=== PATIENT | male | born 1935 | race Caucasian/White ===

== ENCOUNTER 2017-05-31 10:31 | Inpatient (IN) | payer MEDICARE, OTHER ==
[~2017-05-31] VITALS: Ht 172.7 cm; Wt 89.6 kg
[~2017-05-31 10:31] MED LIST: ASPI325T PO; GLUCTAB OR; GLYB1TAB51 PO; MELO7.5T PO; SIMV20TA OR
[2017-05-31 11:05] VITALS: BP 144/84; PULSE 78; RESP 18; TEMP 98; O2SAT 92
[2017-05-31] MEDS ORDERED: RAPA8CAP PO (11:16)
[2017-05-31] MEDS ORDERED: METF1000 PO (11:16)
[2017-05-31] MEDS ORDERED: LOSA25TA PO (11:16)
[2017-05-31] MEDS ORDERED: PANT40TA3 PO (11:16)
[2017-05-31] MEDS ORDERED: MULTTAB67 PO (11:16)
[2017-05-31] MEDS ORDERED: APIX5TAB PO (11:16)
[2017-05-31] MEDS ORDERED: POTA1080 PO (11:16)
[2017-05-31] MEDS ORDERED: NOVONP2 SQ (11:16)
[2017-05-31] MEDS ORDERED: SIMV20TA PO (11:16)
[2017-05-31] MEDS ORDERED: OMEGCAP PO (11:16)
[2017-05-31] MEDS ORDERED: VITA2000 PO (11:16)
[2017-05-31] MEDS ORDERED: VICT18IN SQ (11:16)
[2017-05-31] MEDS ORDERED: GLIM2TAB PO (11:16)
[2017-05-31 11:19] LABS: BASOPHIL % 0.3 % (0.0-2.0); EOSINOPHIL # 0.2 TH/MM3 (0-0.4); EOSINOPHIL % 1.9 % (0.0-4.0); HEMATOCRIT 38.8 % (39.0-51.0); HEMO FLAGS DIFF FINAL; LYMPH % 15.8 % (9.0-44.0); LYMPHOCYTE # 1.7 TH/MM3 (1.0-4.8); MEAN CELL VOLUME 93.9 FL (80.0-100.0); MEAN CORPUSCULAR HEMOGLOBIN 32.2 PG (27.0-34.0); MEAN CORPUSCULAR HGB CONC 34.3 % (32.0-36.0); MONO % 5.8 % (0.0-8.0); NEUT % 76.2 % (16.0-70.0); PLATELET COUNT 315 TH/MM3 (150-450); RED BLOOD COUNT 4.13 MIL/MM3 (4.50-5.90); RED CELL DISTRIBUTION WIDTH 14.4 % (11.6-17.2); WHITE BLOOD COUNT 10.5 TH/MM3 (4.0-11.0)
[2017-05-31 11:32] LABS: PROTHROMBIN TIME - PATIENT 10.7 SEC (9.8-11.6)
[2017-05-31 11:35] LABS: BICARBONATE 27.1 MEQ/L (21.0-32.0)
[2017-05-31] MEDS ORDERED: CLOPIDOGREL 300 MG TAB PO ONE (12:00)
[2017-05-31] MEDS: SODIUM CHLOR 0.9% 1000 ML INJ 1,000 ML IV SCH ×2 (12:00→17:23)
[2017-05-31] MEDS ORDERED: fentaNYL CITRATE 250 MCG/5 ML AMP ONE (13:02)
[2017-05-31] MEDS ORDERED: MIDAZOLAM HCL 2 MG/2 ML VIAL ONE (13:02)
[2017-05-31] MEDS ORDERED: VERAPAMIL HCL 5 MG/2 ML VIAL ONE (13:08)
[2017-05-31] MEDS ORDERED: HEPARIN SODIUM - IV 10,000 UNITS/10 ML VIAL ONE (14:25)
[2017-05-31] MEDS ORDERED: ceFAZolin 2 GM PREMIX 50 ML ONE (14:25)
[2017-05-31] MEDS ORDERED: ACETAMINOPHEN 325 MG TAB PO PRN (14:30)
[2017-05-31] MEDS ORDERED: oxyCODONE/ACETAMINOPHEN 5 MG/325 MG TAB PO PRN (14:30)
--- NOTE | 2017-05-31 14:31 | PD.RAD ---
Post Procedure Progress Note Pre Procedure Diagnosis: (1) Recurrent stenosis of right carotid artery Post Procedure Diagnosis: (1) Recurrent stenosis of right carotid artery Procedure Date: May 31, 2017 Supervising Radiologist: Miguelangel Poole Estimated blood loss: 5cc Anesthesia: Local, Conscious Sedation Plan of Activity Patient to Unit: ROPU Patient Condition: Good Additional Comments: Post right carotid stent placement for recurrent carotid stenosis post CEA. Stent in excellent position and fully expanded. Excellent intracranial flow Pt. neurologically intact. Full dictated report to follow See PACS Report for procedural detail/treatment Miguelangel Poole MD May 31, 2017 14:31
[2017-05-31] MEDS ORDERED: IODIXANOL 320 MG/ML 50 ML VIAL (for RAD SPEC) I-ARTERIAL ONE (14:41)
[2017-05-31] MEDS ORDERED: SODIUM CHLORIDE 0.9% FLUSH 10 ML FLUSH IV FLUSH PRN (14:45)
[2017-05-31 15:00] VITALS: BP 132/86; PULSE 66; RESP 16; TEMP 98; O2SAT 94
--- NOTE | 2017-05-31 15:28 | RADRPT ---
EXAM DATE/TIME: 05/31/2017 13:01 [place] COMPARISON: US GUIDED VASCULAR ACCESS, RIGHT, May 31, 2017, 0:00. INDICATIONS : Patient is in need of a cerebral angiogram and right carotid stent due to carotid stenosis. MEDICAL HISTORY : History of AFIB, CVA, PVD, renal stones, asthma, HTN, DM. SURGICAL HISTORY : History of tonsillectomy, bilateral carotid endoarterectomy. ENCOUNTER: Initial ACUITY: 1 week PAIN SCORE: 0/10 FLUORO TIME: 17.2 minutes IMAGE SERIES: 13 ACCESS SITE: Right Femoral artery SEDATION TIME: 60 minutes CONTRAST: 100 cc Visipaque (iodixanol) MEDICATION(S): 1.) 3.5 mg midazolam (Versed) IV 2.) 175 mcg fentanyl (Sublimaze) IV 3.) 6000 units Heparin IV 4.) 2 g cefazolin (Ancef) IV Vancomycin within 2 hrs of procedure, Ancef (or alternative) within 1 hr of procedure. DEVICE(S): 1.) Right internal carotid artery 5.0mm x 20mm x 135cm DRY CLEANING ATTENDANT balloon BS Thaddeus Monorail 2.) Right internal carotid artery 10-7 x 30 stent (self expanding) 3.) Right common femoral artery 6Fr Angio-Seal 4.) PROCEDURE : 1. Ultrasound guided puncture of the right common femoral common femoral artery. 2. Angiography of the right common femoral artery prior to closure device. 3. Conscious sedation with continuous EKG and oximetry monitoring. 4. Percutaneous closure of the femoral artery. 5. Angiography of the right internal carotid 6. intracranial circulation on the right. 7. Angioplasty of the right internal carotid. 8. Stenting of the right internal carotid circulation. The patient is a 81-year-old who underwent right carotid endarterectomy approximately 10 years previo us. The patient underwent CT angiography demonstrating focal stenosis in the proximal right internal carotid. The risks, benefits and alternatives to the procedure were explained and verbal and written consent was obtained. The site was prepped in sterile fashion. Full sterile technique was used, inc luding cap, mask, sterile gloves and gown and a large sterile sheet. Hand hygiene and 2% chlorhexidi ne and/or betadine/alcohol prep was utilized per protocol for cutaneous antisepsis. The skin and sub cutaneous tissues were infiltrated with local anesthetic solution. The patient was given a loading dose of 300 mg of Plavix 2 hours prior to the procedure. With ultrasound and fluoroscopic guidance the right common femoral artery was punctured and a vascula r sheath was placed. Angiography of the common femoral artery was performed for evaluation prior to p ercutaneous closure device placement. A 0.035 angle glide wire and GENA 2 catheter were advanced into the aortic arch. The innominate artery origin was easily selected. A 0.035 angled Glidewire was advanced into the right common carotid. The GENA 2 catheter was advanced up to the bifurcation. Selective carotid angiography demonstrated a critic al weblike stenosis in the origin of the right internal carotid. This was felt to be greater than 80- 90%. The patient was heparinized with a total of 6000 units of heparin. ACT was documented approximately 2 40-250. The external carotid circulation was easily selected. The GENA 2 catheter was advanced into the externa l carotid. The Glidewire was exchanged for a Magic torque wire. A 90 cm 6 [place] Raabe sheath was adv anced from the right groin up to the distal common carotid. The Magic torque wire was removed. The internal carotid circulation was cannulated with a 0.018 steal core wire. A 7 mm spider asked filter basket was advanced over the steal core wire and positioned wi thin the right internal carotid circulation at the level of the skull base. A 5 mm x 2 cm balloon was advanced over the steal core wire. Angioplasty of the carotid stenosis was performed. Followup angiography demonstrated significant resolution of the area of stenosis. This was followed by a 8/10 x 3 cm self-expanding stent. Followup angiography demonstrated the stent to be in excellent position. The internal carotid was wid tracy patent. There is brisk flow within the intrarenal circulation as well. The puncture site was closed with a Perclose suture mediated closure device. The patient tolerated t he procedure well and there were no complications. Conscious sedation was performed with the prescribed dosages and duration as above in the presence of an independent trained radiology nurse to assist in the monitoring of the patient. EKG and oximetry remained stable throughout the procedure. CONCLUSION: 1. Uncomplicated carotid artery stent placement as above. The stent is in excellent position with joel sk flow through the internal carotid circulation. 2. Ultrasound examination at 6, 12, 18 and 24 months following procedure should be performed to evalu ate stent patency. Miguelangel Poole MD on May 31, 2017 at 15:15 Board Certified Radiologist. This report was verified electronically.
--- NOTE | 2017-05-31 15:53 | HHI.HP ---
[facility] Primary [facility] Physician Willis Márquez, Admission Diagnosis right recurrent carotid artery stenosis Diagnoses: (1) Recurrent stenosis of right carotid artery Diagnosis: Principal Chief Complaint: carotid blockage Travel History International Travel<30 Days: No Contact w/Intl Traveler <30 Da: No Traveled to Known Affected Are: No History of Present Illness 81-year-old white male being admitted for recurrent right carotid artery stenosis with a history of stroke in left eye w/ permanently impaired vision. Patient underwent right carotid artery stent placement today without complication, good blood flow evident. Denies having any strokelike symptoms in the past month including but not limited to facial droop, slurred speech, aspirating, choking, new vision impairment, focal limb numbness or weakness. 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 Reports undergoing what sounds bilateral carotid artery bypass surgery years ago. Review of Systems Except as stated in HPI: all other systems reviewed are Neg Past Family Social History Past Medical History diabetes, CVA, afib, nephrlithiasis Past Surgical History bilateral carotid endarterectomy, adenotonsillectomy Reported Medications Reported Meds & Active Scripts Active Reported Potassium Citrate ER 1,080 Mg Tab 1 Tab PO DAILY Novolin N Inj (Insulin Human NPH) 1,000 Unit/10 Ml Vial 10 Units SQ DAILY Simvastatin 20 Mg Tab 20 Mg PO DAILY Rapaflo (Silodosin) 8 Mg Cap 8 Mg PO DAILY Victoza Inj (Liraglutide Inj) 18 Mg/3 Ml Pen 0.6 Mg SQ ONCE Eliquis (Apixaban) 5 Mg Tab 5 Mg PO BID Pantoprazole (Pantoprazole Sodium) 40 Mg Tab 40 Mg PO DAILY Multiple Vitamin 1 Tab 1 Tab PO DAILY [place]-3 Fish Oil/Vitamin (Fish Oil-Cholecalciferol) 1,000-1,000 Mg Cap 1 Cap PO DAILY Vitamin D3 (Cholecalciferol) 2,000 Unit Cap 2,000 Units PO DAILY Glimepiride 2 Mg Tab 2 Mg PO BIDAC Losartan (Losartan Potassium) 25 Mg Tab 25 Mg PO DAILY Metformin (Metformin HCl) 1,000 Mg Tab 1,000 Mg PO BIDPC With meals Allergies: Coded Allergies: No Known Allergies (Unverified , 05/31/17) Active Ordered Medications Reported Meds & Active Scripts Active Reported Potassium Citrate ER 1,080 Mg Tab 1 Tab PO DAILY Novolin N Inj (Insulin Human NPH) 1,000 Unit/10 Ml Vial 10 Units SQ DAILY Simvastatin 20 Mg Tab 20 Mg PO DAILY Rapaflo (Silodosin) 8 Mg Cap 8 Mg PO DAILY Victoza Inj (Liraglutide Inj) 18 Mg/3 Ml Pen 0.6 Mg SQ ONCE Eliquis (Apixaban) 5 Mg Tab 5 Mg PO BID Pantoprazole (Pantoprazole Sodium) 40 Mg Tab 40 Mg PO DAILY Multiple Vitamin 1 Tab 1 Tab PO DAILY [place]-3 Fish Oil/Vitamin (Fish Oil-Cholecalciferol) 1,000-1,000 Mg Cap 1 Cap PO DAILY Vitamin D3 (Cholecalciferol) 2,000 Unit Cap 2,000 Units PO DAILY Glimepiride 2 Mg Tab 2 Mg PO BIDAC Losartan (Losartan Potassium) 25 Mg Tab 25 Mg PO DAILY Metformin (Metformin HCl) 1,000 Mg Tab 1,000 Mg PO BIDPC With meals Family History HTN Social History Lives with , ex-smoker, drinks 1-2 beers 2-3 days daily. Physical Exam Vital Signs Vital Signs Date Time Temp Pulse Resp B/P Pulse Ox O2 Delivery O2 Flow Rate FiO2 05/31/17 11:05 92 Room Air 05/31/17 11:05 98.0 78 18 144/84 92 Physical Exam VS: Reviewed GENERAL: NAD SKIN: Warm and dry. EYES: Pupils equal and round. No scleral icterus. No injection or drainage. ENT: No nasal bleeding or discharge. Mucous membranes pink and moist. CARDIOVASCULAR: Regular rate and rhythm. no murmurs. No carotid bruits heard bilaterally. Left dorsalis pedis pulse intact, no pulse palpable on the right yet confirmed with Doppler per nursing. RESPIRATORY: No accessory muscle use. Clear to auscultation. Breath sounds equal bilaterally. GASTROINTESTINAL: Abdomen soft, non-tender, nondistended. MUSCULOSKELETAL: Extremities without clubbing, cyanosis, or edema. No obvious deformities. grossly intact 5/5 strength in upper and lower extremities proximally NEUROLOGICAL: Awake and alert. No facial droop nor slurred speech noted. Can track well with both eyes, unable to discriminate fingers in central field of left eye. PSYCHIATRIC: Appropriate mood and affect; insight and judgment normal. Laboratory Laboratory Tests Test 05/31/17 11:00 White Blood Count 10.5 Red Blood Count 4.13 Hemoglobin 13.3 Hematocrit 38.8 Mean Corpuscular Volume 93.9 Mean Corpuscular Hemoglobin 32.2 Mean Corpuscular Hemoglobin 34.3 Concent Red Cell Distribution Width 14.4 Platelet Count 315 Mean Platelet Volume 7.4 Neutrophils (%) (Auto) 76.2 Lymphocytes (%) (Auto) 15.8 Monocytes (%) (Auto) 5.8 Eosinophils (%) (Auto) 1.9 Basophils (%) (Auto) 0.3 Neutrophils # (Auto) 8.0 Lymphocytes # (Auto) 1.7 Monocytes # (Auto) 0.6 Eosinophils # (Auto) 0.2 Basophils # (Auto) 0.0 CBC Comment DIFF FINAL Differential Comment Prothrombin Time 10.7 Prothromb Time International 1.0 Ratio Activated Partial 27.0 Thromboplast Time Sodium Level 136 Potassium Level 4.0 Chloride Level 101 Carbon Dioxide Level 27.1 Anion Gap 8 Blood Urea Nitrogen 16 Creatinine 0.68 Estimat Glomerular Filtration 112 Rate Random Glucose 171 Calcium Level 9.1 Result Diagram: 05/31/17 1100 05/31/17 1100 Imaging Last 24 hours Impressions Vascular Stent Procedure 05/31/17 0000 Signed Impressions: Service Date/Time: May 13:01 - CONCLUSION: 1. Uncomplicated carotid artery stent placement as above. The stent is in excellent position with brisk flow through the internal carotid circulation. 2. Ultrasound examination at 6, 12, 18 and 24 months following procedure should be performed to evaluate stent patency. Miguelangel Poole MD Assessment and Plan Assessment and Plan 81-year-old white male admitted for recurrent right carotid artery stenosis, currently status post stenting via interventional radiology. 1) carotid artery atherosclerosis - blood thinners per interventional radiology , currently holding eliquis, switching from simvastatin to high intensity of atorvastatin 40. Status post cerebral angiogram, we'll therefore continue IV fluids through the night, BMP in AM. Pain medications ordered by IR. 2) diabetes - holding home medications, starting low-dose sliding scale Discharge anticipated tomorrow. Physician Certification 2 Midnight Certification Type: Admission for Inpatient Services Order for Inpatient Services The services are ordered in accordance with Medicare regulations or non- Medicare payer requirements, as applicable. In the case of services not specified as inpatient-only, they are appropriately provided as inpatient services in accordance with the 2-midnight benchmark. Estimated LOS (days): 1 1 days is the estimated time the patient will need to remain in the hospital, assuming treatment plan goals are met and no additional complications. Post-Hospital Plan: Home Rigo Paula MD May 31, 2017 15:52 Rigo Paula MD May 31, 2017 15:52
[2017-05-31] MEDS: INSULIN NovoLIN REGULAR SUPPLEMENTAL SCALE SQ SCH ×2 (16:00→21:00)
[2017-05-31] MEDS ORDERED: DEXTROSE 50% IN WATER 50 ML VIAL(D50) IV PRN (16:00)
[2017-05-31] MEDS ORDERED: GLUCAGON 1 MG/ML VIAL OTHER PRN (16:00)
[2017-05-31] MEDS: PANTOPRAZOLE SOD 40 MG DELAYED RELEASE TAB PO SCH (17:23)
[2017-05-31] MEDS: LOSARTAN 25 MG TAB PO SCH (17:24)
[2017-05-31] MEDS: TAMSULOSIN HCL 0.4 MG CAP PO SCH (17:24)
[2017-05-31 20:00] VITALS: BP 120/55; PULSE 67; RESP 20; TEMP 98.7; O2SAT 96
[2017-05-31] MEDS ORDERED: ATORVASTATIN 40 MG TAB PO SCH (21:00)
[2017-06-01] VITALS: BP 115/72; PULSE 74; RESP 20; O2SAT 94
[2017-06-01 04:00] VITALS: BP 116/74; PULSE 72; PULSE 73; RESP 18; TEMP 98.4; O2SAT 97
[2017-06-01 09:00] VITALS: BP 131/83; PULSE 71; PULSE 81; RESP 20; TEMP 97.7; O2SAT 95
[2017-06-01] MEDS ORDERED: CHOLECALCIFEROL (VIT D3) 1000 UNIT TAB PO SCH (09:00)
[2017-06-01] MEDS ORDERED: UROCIT K PO SCH (09:00)
[2017-06-01 09:34] LABS: BICARBONATE 28.1 MEQ/L (21.0-32.0); POTASSIUM 3.9 MEQ/L (3.5-5.1)
[2017-06-01] MEDS: PANTOPRAZOLE SOD 40 MG DELAYED RELEASE TAB PO SCH (09:42)
[2017-06-01] MEDS: LOSARTAN 25 MG TAB PO SCH (09:43)
--- NOTE | 2017-06-01 09:46 | PD.RAD ---
Radiology Note POD#1 S/P right carotid stent placement. AFVSS. Neuro exam unremarkable. No evidence of complication at right groinaccess. No current complaints. Pt. states he feels fine. A/P 1. Discharge today if OK with ANNAMARIA ROSAS. IR nurse to see patient prior to DC. 2. Folow up with IR in 10 days. 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 4. Plavix 75mg po today prior to discharge then patient will resume Eliquis on Sunday Miguelangel Poole MD Jun 01, 2017 09:46
[2017-06-01 09:48] VITALS: O2SAT 94
[2017-06-01] MEDS: TAMSULOSIN HCL 0.4 MG CAP PO SCH (10:25)
[2017-06-01] MEDS ORDERED: ASPIRIN EC 325 MG TABEC PO ONE (10:45)
[2017-06-01] MEDS ORDERED: CLOPIDOGREL 75 MG TAB PO ONE (10:45)
[2017-06-01 11:00] VITALS: BP 125/79; PULSE 84; RESP 20; TEMP 97.8; O2SAT 94
[2017-06-01] MEDS ORDERED: ATOR40TA16 PO (11:00)
--- NOTE | 2017-06-01 11:01 | HHI.DCPOC ---
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 May use Tylenol for pain control Directions to Meet Your Goals Take your medications as prescribed Follow your dietary instruction Follow activity as directed Keep your appointments as scheduled Take your immunizations and boosters as scheduled If your symptoms worsen call your PCP, if no PCP go to Urgent Care Center or Emergency Room Smoking is Dangerous to Your Health. Avoid second hand smoke Call the 24-hour hour crisis hotline for domestic abuse at Rigo Paula MD Jun 01, 2017 11:01
--- NOTE | 2017-06-01 11:12 | HHI.DS ---
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 Patient underwent right carotid artery stent placement today without complication, good blood flow evident. Denies having any strokelike symptoms in the past month including but not limited to facial droop, slurred speech, aspirating, choking, new vision impairment, focal limb numbness or weakness. 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 Reports undergoing what sounds bilateral carotid artery bypass surgery years ago. CBC/BMP: 05/31/17 1100 06/01/17 0607 Significant Findings Laboratory Tests Test 05/31/17 06/01/17 11:00 06:07 Red Blood Count 4.13 MIL/MM3 (4.50-5.90) Hematocrit 38.8 % (39.0-51.0) Neutrophils (%) (Auto) 76.2 % (16.0-70.0) Neutrophils # (Auto) 8.0 TH/MM3 (1.8-7.7) Random Glucose 171 MG/DL 177 MG/DL (74-106) (74-106) Creatinine 0.56 MG/DL (0.60-1.30) Imaging Last Impressions Vascular Stent Procedure 05/31/17 0000 Signed Impressions: Service Date/Time: May 13:01 - CONCLUSION: 1. Uncomplicated carotid artery stent placement as above. The stent is in excellent position with brisk flow through the internal carotid circulation. 2. Ultrasound examination at 6, 12, 18 and 24 months following procedure should be performed to evaluate stent patency. Miguelangel Poole MD PE at Discharge GENERAL: No acute distress CARDIOVASCULAR: Regular rate and rhythm without murmurs, gallops, or rubs. No carotid bruits, intact radial pulse RESPIRATORY: Breath sounds equal and clear bilaterally. Unlabored breathing GASTROINTESTINAL: Abdomen soft, non-tender, nondistended. MUSCULOSKELETAL: No cyanosis, or edema. Skin: Well-healing catheter insertion site on right medial thigh Neurological: No facial droop, or slurred speech, conjugate gaze, extraocular motions intact Hospital Course Patient underwent stent placement of the right carotid artery with medications. Tolerated procedure well, remained stable overnight and has met maximum benefit from hospitalization. Is clinically stable for discharge. Patient is to remain off of NSAIDs and start his eliquis, has been switched over to high intensity statin, to follow-up with cardiology. Patient was informed that as long as he was cleared by his fitter machinist or neurologist regarding the vision impairment in his left eye, then and only then can he drive or operate any heavy machinery. Pt Condition on Discharge: Good Discharge Disposition: Discharge Home Discharge Time: > 30 minutes Discharge Instructions DIET: Follow Instructions for: Heart Healthy Diet Activities you can perform: Regular-No Restrictions, See Additionl Instruction Other Activity Instructions: As long as you have been cleared/approved by a neurologist or an fitter machinist regarding your vision impairment in her left eye, then you may drive or operate any heavy machinery. Follow up Referrals: Cardiology - 2 Weeks PCP Follow-up - 1 Week New Medications: Atorvastatin (Atorvastatin) 40 Mg Tab 40 MG PO HS Cholesterol Management #30 TAB Continued Medications: Apixaban (Eliquis) 5 Mg Tab 5 MG PO BID Blood Clot Prevention #60 Ref 0 TAB Cholecalciferol (Vitamin D3) 2,000 Unit Cap 2000 UNITS PO DAILY Nutritional Supplement #1 Ref 0 BOTTLE Fish Oil-Cholecalciferol ([place]-3 Fish Oil/Vitamin) 1,000-1,000 Mg Cap 1 CAP PO DAILY Nutritional Supplement Ref 0 CAP Glimepiride (Glimepiride) 2 Mg Tab 2 MG PO BIDAC Blood Sugar Management #60 Ref 0 TAB Insulin Human NPH Inj (Novolin N Inj) 1,000 Unit/10 Ml Vial 10 UNITS SQ DAILY Blood Sugar Management #10 Ref 0 ML Liraglutide Inj (Victoza Inj) 18 Mg/3 Ml Pen 0.6 MG SQ ONCE #1 Ref 0 PEN Losartan (Losartan) 25 Mg Tab 25 MG PO DAILY Blood Pressure Management #30 Ref 0 TAB Metformin (Metformin) 1,000 Mg Tab 1000 MG PO BIDPC With meals Blood Sugar Management #60 Ref 0 TAB Multiple Vitamin (Multiple Vitamin) 1 Tab 1 TAB PO DAILY Nutritional Supplement Ref 0 TAB Pantoprazole (Pantoprazole) 40 Mg Tab 40 MG PO DAILY Reflux #30 Ref 0 TAB Potassium Citrate ER (Potassium Citrate ER) 1,080 Mg Tab 1 TAB PO DAILY Silodosin (Rapaflo) 8 Mg Cap 8 MG PO DAILY Manage Prostate Problems #30 Ref 0 CAP Discontinued Medications: Simvastatin (Simvastatin) 20 Mg Tab 20 MG PO DAILY Cholesterol Management #30 Ref 0 TAB Rigo Paula MD Jun 01, 2017 11:12
== END 2017-06-01 12:01 | disposition home or self-care (01) | DRG 39 ==
LOC: HROP 10:31 → HRIP 10:32 → HROP 14:38 → HSDI 14:48 → OBSVTOIN 15:40 → HCPC 15:55 → HCVR 16:09
PROVIDERS: ADMIT Hospitalist; ATTEND Hospitalist
PROC: 037 Upper Arteries, Dilation (ICD-10-PCS; principal; 2017-05-31)
PROC: B3161ZZ Fluoroscopy of Right Internal Carotid Artery using Low Osmolar Contrast (ICD-10-PCS; 2017-05-31)
DX: I65.21 Occlusion and stenosis of right carotid artery (principal); I48.91 Unspecified atrial fibrillation; E11.9 Type 2 diabetes mellitus without complications; Z86.73 Personal history of transient ischemic attack (TIA), and cerebral infarction without residual deficits; H54.7 Unspecified visual loss
CPT/HCPCS: 37215; 76937; 80048; 82948; 85025; 85347; 85610; 85730; 99152; 99153; C1725; C1760; C1769; C1876; C1884; C1887; C1894; J0690; J1644; J2250; J3010; J7030; Q9967

== ENCOUNTER 2017-06-27 17:24 | Inpatient (IN) | payer MEDICARE, OTHER ==
[~2017-06-27] VITALS: Ht 172.7 cm; Wt 86.0 kg
[~2017-06-27 17:24] MED LIST changes: +APIX5TAB PO; -ASPI325T PO; +ATOR40TA16 PO; +GLIM2TAB PO; -GLUCTAB OR; -GLYB1TAB51 PO; +LOSA25TA PO; -MELO7.5T PO; +METF1000 PO; +MULTTAB67 PO; +NOVONP2 SQ; +OMEGCAP PO; +PANT40TA3 PO; +POTA1080 PO; +RAPA8CAP PO; -SIMV20TA OR; +VICT18IN SQ; +VITA2000 PO
[2017-06-27 17:27] VITALS: BP 166/90; PULSE 92; RESP 24; TEMP 97.5; O2SAT 94
[2017-06-27 18:00] VITALS: BP 120/81; PULSE 97; RESP 17
[2017-06-27] MEDS ORDERED: SODIUM CHLOR 0.9% 1000 ML INJ 1,000 ML IV ONE (18:01)
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
[2017-06-27] MEDS ORDERED: LIPI40TA PO (18:29)
[2017-06-27] MEDS ORDERED: SODI325T PO (18:29)
[2017-06-27 18:31] VITALS: O2SAT 97
[2017-06-27 18:34] LABS: AUTOMATED NEUTROPHIL # 10.6 TH/MM3 (1.8-7.7); BASOPHIL % 0.3 % (0.0-2.0); EOSINOPHIL # 0.1 TH/MM3 (0-0.4); EOSINOPHIL % 0.7 % (0.0-4.0); HEMATOCRIT 38.5 % (39.0-51.0); HEMO FLAGS DIFF FINAL; LYMPH % 12.1 % (9.0-44.0); LYMPHOCYTE # 1.5 TH/MM3 (1.0-4.8); MEAN CELL VOLUME 94.5 FL (80.0-100.0); MEAN CORPUSCULAR HEMOGLOBIN 31.9 PG (27.0-34.0); MEAN CORPUSCULAR HGB CONC 33.7 % (32.0-36.0); MONO % 4.1 % (0.0-8.0); NEUT % 82.8 % (16.0-70.0); PLATELET COUNT 359 TH/MM3 (150-450); RED BLOOD COUNT 4.07 MIL/MM3 (4.50-5.90); RED CELL DISTRIBUTION WIDTH 14.7 % (11.6-17.2); WHITE BLOOD COUNT 12.8 TH/MM3 (4.0-11.0)
--- NOTE | 2017-06-27 18:35 | RADRPT ---
EXAM DATE/TIME: 06/27/2017 18:15 [facility] COMPARISON: No previous studies available for comparison. INDICATIONS : Weakness and confusion. MEDICAL HISTORY : AFIB, CVA, PVD, renal stones, asthma, hypertension, and diabetes. SURGICAL HISTORY : None. ENCOUNTER: Initial ACUITY: 1 day PAIN SCORE: 0/10 LOCATION: Bilateral chest FINDINGS: There is trace bibasilar atelectasis. No pleural effusion seen. No pneumothorax. There is mild cardio megaly. CONCLUSION: Trace bibasilar atelectasis and mild compensated cardiomegaly. Richie Hernandez MD on June 27, 2017 at 18:33 Board Certified Radiologist. This report was verified electronically.
--- NOTE | 2017-06-27 18:40 | RADRPT ---
EXAM DATE/TIME: 06/27/2017 18:32 [facility] COMPARISON: No previous studies available for comparison. INDICATIONS : Weakness and lethargic for one week. RADIATION DOSE: 51.90 CTDIvol (mGy) MEDICAL HISTORY : Hypertension. afib SURGICAL HISTORY : Carotid endarterectomy. ENCOUNTER: Initial ACUITY: 1 week PAIN SCALE: 3/10 LOCATION: cranial TECHNIQUE: Multiple contiguous axial images were obtained of the head. Using automated exposure control and adj ustment of the mA and/or kV according to patient size, radiation dose was kept as low as reasonably a chievable to obtain optimal diagnostic quality images. DICOM format image data is available electro nically for review and comparison. FINDINGS: CEREBRUM: The ventricles are normal for age. No evidence of midline shift, mass lesion, hemorrhage or acute in farction. No extra-axial fluid collections are seen. Symmetric, chronic appearing low attenuation se en in the periventricular white matter. POSTERIOR FOSSA: The cerebellum and brainstem are intact. The 4th ventricle is midline. The cerebellopontine angle i s unremarkable. EXTRACRANIAL: The visualized portion of the orbits is intact. SKULL: The calvaria is intact. No evidence of skull fracture. CONCLUSION: No acute intracranial abnormality. Mild, chronic white matter changes. Richie Hernandez MD on June 27, 2017 at 18:38 Board Certified Radiologist. This report was verified electronically.
[2017-06-27 18:44] LABS: BACTERIA, URINE RARE /hpf; BLOOD, URINE MOD (NEG); GLUCOSE,URINE NEG (NEG); KETONE, URINE 40 mg/dL (NEG); MUCUS URINE FEW /lpf (OCC); NITRITE,URINE NEG (NEG); URINE COLOR YELLOW (YELLW/STRAW)
[2017-06-27 18:45] LABS: COMMENT (UR) CATH-CULTURE IND; CULTURE IF INDICATED CATH CULTURE IND
[2017-06-27 18:50] LABS: ALT (GPT) 13 U/L (12-78)
[2017-06-27 18:51] LABS: ALKALINE PHOSPHATASE 69 U/L (45-117); TOTAL BILIRUBIN ADULT 0.4 MG/DL (0.2-1.0)
[2017-06-27 18:53] LABS: ANION GAP 8 MEQ/L (5-15); AST (GOT) 20 U/L (15-37); BICARBONATE 25.6 MEQ/L (21.0-32.0); BLOOD UREA NITROGEN 9 MG/DL (7-18); CHLORIDE 96 MEQ/L (98-107); GLOMERULAR FILTRATION RATE 104 ML/MIN (>89); MAGNESIUM 1.3 MG/DL (1.5-2.5); POTASSIUM 4.2 MEQ/L (3.5-5.1); SODIUM (NA) 130 MEQ/L (136-145)
[2017-06-27] MEDS ORDERED: PIPERACIL-TAZO 4.5 GM PREMIX 100 ML IV STA (18:56)
[2017-06-27] MEDS ORDERED: VANCOMYCIN INJ 1,000 MG in SODIUM CHLOR 0.9% 250 ML INJ 250 ML IV STA (18:56)
[2017-06-27] MEDS ORDERED: MAGNESIUM SULFATE 1 GM PREMIX 100 ML IV ONE (19:30)
[2017-06-27 20:45] VITALS: BP 131/72; PULSE 67; RESP 18; O2SAT 98
[2017-06-27 21:00] VITALS: BP 121/71; PULSE 86; RESP 17; O2SAT 96
[2017-06-27] MEDS ORDERED: SODIUM CHLORIDE 0.9% FLUSH 10 ML FLUSH IV FLUSH PRN (21:00)
[2017-06-27] MEDS ORDERED: NALOXONE HCL 0.4 MG/ML AMP IV PUSH PRN (21:00)
[2017-06-27] MEDS ORDERED: Vancomycin Consult Pharmacy 1 EA OTHER SCH (21:00)
[2017-06-27 22:00] VITALS: BP 134/78; PULSE 86; RESP 18; O2SAT 95
[2017-06-28] VITALS (9 sets, daily range): BP systolic 109–142; BP diastolic 62–78; PULSE 67–97; RESP 17–18; TEMP 96.1–97.8; O2SAT 94–96
[2017-06-28] MEDS: SODIUM CHLORIDE 0.9% FLUSH 10 ML FLUSH IV FLUSH SCH ×3 (01:36→21:02)
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
[2017-06-28] MEDS ORDERED: VICTOZA 0.6 MG SQ SCH (02:45)
[2017-06-28] MEDS: PIPERACIL-TAZO 4.5 GM PREMIX 100 ML IV SCH ×4 (04:12→21:01)
[2017-06-28] MEDS: VANCOMYCIN INJ 1,400 MG in SODIUM CHLORID 0.9% 500 ML INJ 500 ML IV SCH ×2 (06:17→16:48)
[2017-06-28 08:15] LABS: AUTOMATED NEUTROPHIL # 7.2 TH/MM3 (1.8-7.7); BASOPHIL % 0.4 % (0.0-2.0); EOSINOPHIL # 0.3 TH/MM3 (0-0.4); EOSINOPHIL % 2.6 % (0.0-4.0); HEMATOCRIT 38.7 % (39.0-51.0); HEMO FLAGS DIFF FINAL; LYMPH % 20.3 % (9.0-44.0); LYMPHOCYTE # 2.1 TH/MM3 (1.0-4.8); MEAN CELL VOLUME 93.7 FL (80.0-100.0); MEAN CORPUSCULAR HEMOGLOBIN 32.2 PG (27.0-34.0); MEAN CORPUSCULAR HGB CONC 34.3 % (32.0-36.0); MONO % 6.5 % (0.0-8.0); NEUT % 70.2 % (16.0-70.0); PLATELET COUNT 366 TH/MM3 (150-450); RED BLOOD COUNT 4.13 MIL/MM3 (4.50-5.90); WHITE BLOOD COUNT 10.3 TH/MM3 (4.0-11.0)
[2017-06-28] MEDS: PANTOPRAZOLE SOD 40 MG DELAYED RELEASE TAB PO SCH (08:27)
[2017-06-28] MEDS: APIXABAN 5 MG TABLET PO SCH ×2 (08:27→21:02)
[2017-06-28] MEDS: LOSARTAN 25 MG TAB PO SCH (08:27)
[2017-06-28] MEDS: SODIUM BICARBONATE 325 MG TAB PO SCH (08:27)
[2017-06-28 08:41] LABS: BICARBONATE 26.3 MEQ/L (21.0-32.0); POTASSIUM 4.2 MEQ/L (3.5-5.1)
[2017-06-28] MEDS: RAPAFLO 8 MG PO SCH (09:00)
[2017-06-28] MEDS: POTASSIUM CITRATE PO SCH (09:00)
--- NOTE | 2017-06-28 14:27 | EKG ---
Date Performed: 06/27/2017 Time Performed: 18:19:00 PTAGE: 81 years EKG: Sinus rhythm WITH FIRST DEGREE AV BLOCK WITH OCCASIONAL VENTRICULAR PREMATURE COMPLEXES WITH OCCASIONAL SUPRAVENT RICULAR PREMATURE COMPLEXES MARKED LEFT AXIS DEVIATION RIGHT BUNDLE BRANCH BLOCK ABNORMAL ECG Compare d to PREVIOUS TRACING PVCs are new, otherwise no significant change PREVIOUS TRACIN 012 09.32 DOCTOR: Bipin Hayes Interpretating Date/Time 06/28/2017 14:26:19
--- NOTE | 2017-06-28 14:42 | HHI.PR ---
Addendum to Inpatient Note Addendum Reason: Additional Documentation Additional Information Patient seen and examined. Patient states he is doing better. Confusion has resolved. He denies any fever or chills. Denies any N/V or abdominal pain. Denies any chest pain or shortness of breath. Denies any loose stools. States he had been having urinary frequency prior to admission but denies any dysuria x 2 weeks. Treated with antibiotic by PCP. GENERAL: This is a well-nourished, well-developed patient, in no apparent distress. Awake and alert. Sitting up in bedside recliner. SKIN: No rashes, ecchymoses or lesions. Cool and dry. HEAD: Atraumatic. Normocephalic. EYES: Extraocular motions intact. No scleral icterus. No injection or drainage. ENT: Nose without bleeding, purulent drainage. Airway patent. MMM. NECK: Trachea midline. No lymphadenopathy. Supple, nontender, no meningeal signs. CARDIOVASCULAR: Regular rate and rhythm without murmurs, gallops, or rubs. RESPIRATORY: Clear to auscultation. Breath sounds equal bilaterally. No wheezes , rales, or rhonchi. GASTROINTESTINAL: Abdomen soft, non-tender, nondistended. No hepato-splenomegaly , or palpable masses. No guarding. MUSCULOSKELETAL: Extremities without clubbing, cyanosis, or edema. No joint tenderness, effusion, or edema noted. No calf tenderness. NEUROLOGICAL: Awake and alert. Able to move all extremities. Normal speech. 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 Bundy ([facility]) Additional Information The exam, history, and the medical decision-making described in the above note were completed with the assistance of the mid-level provider. I reviewed and agree with the findings presented. I attest that I had a [id number] encounter with the patient on the same day, and personally performed and documented my assessment and findings in the medical record. (Sophia Bundy MD) Patricia Syed Jun 28, 2017 14:42 Sophia Bundy MD Jun 28, 2017 18:20
[2017-06-28] MEDS ORDERED: GLUCAGON 1 MG/ML VIAL OTHER PRN (16:00)
[2017-06-28] MEDS ORDERED: DEXTROSE 50% IN WATER 50 ML VIAL(D50) IV PRN (16:00)
[2017-06-28] MEDS: INSULIN ASPART SUPPLEMENTAL SCALE SQ SCH ×2 (16:53→21:00)
[2017-06-28] MEDS: ATORVASTATIN 40 MG TAB PO SCH (21:02)
[2017-06-29] VITALS: BP 127/74; PULSE 86; RESP 17; TEMP 97; O2SAT 95
[2017-06-29] MEDS: PIPERACIL-TAZO 4.5 GM PREMIX 100 ML IV SCH ×3 (03:00→14:59)
[2017-06-29 04:00] VITALS: BP 101/80; PULSE 93; RESP 17; TEMP 96.5; O2SAT 95
[2017-06-29] MEDS ORDERED: PHARMACY ORDERED LAB ONE (05:45)
[2017-06-29] MEDS: VANCOMYCIN INJ 1,400 MG in SODIUM CHLORID 0.9% 500 ML INJ 500 ML IV SCH ×2 (05:54→18:13)
[2017-06-29] MEDS: INSULIN ASPART SUPPLEMENTAL SCALE SQ SCH ×4 (06:08→21:00)
[2017-06-29 08:00] VITALS: BP 133/70; PULSE 74; RESP 16; TEMP 96.6; O2SAT 94
[2017-06-29] MEDS: RAPAFLO 8 MG PO SCH (09:00)
[2017-06-29] MEDS: POTASSIUM CITRATE PO SCH (09:00)
[2017-06-29] MEDS: PANTOPRAZOLE SOD 40 MG DELAYED RELEASE TAB PO SCH (09:50)
[2017-06-29] MEDS: SODIUM BICARBONATE 325 MG TAB PO SCH (09:50)
[2017-06-29] MEDS: APIXABAN 5 MG TABLET PO SCH ×2 (09:50→21:01)
[2017-06-29] MEDS: LOSARTAN 25 MG TAB PO SCH (09:50)
[2017-06-29 12:00] VITALS: BP 129/72; PULSE 70; PULSE 88; RESP 18; TEMP 97.3; O2SAT 93
--- NOTE | 2017-06-29 15:06 | HHI.PR ---
Subjective Remarks Followup on patient with encephalopathy, UTI, SIRS. Patient seen and examined today. is at the bedside and provided additional history that patient was dx'd with UTI on 06/17 and treated with clindamycin 150mg BID followed by Bactrim that was started on 06/24. Patient's mental status has improved to his baseline. He denies any acute medical complaints. Denies any fever or chills. Denies any chest pain or shortness of breath. Denies any N/V or abdominal pain. States he is urinating without any difficulties. (+)BM. Objective Vitals Vital Signs Date Time Temp Pulse Resp B/P (MAP) Pulse Ox O2 Delivery O2 Flow Rate FiO2 06/29/17 12:00 97.3 70 18 129/72 (91) 93 06/29/17 08:00 96.6 74 16 133/70 (91) 94 06/29/17 04:00 96.5 93 17 101/80 (87) 95 06/29/17 00:00 97.0 86 17 127/74 (91) 95 06/28/17 20:13 90 06/28/17 20:00 97.8 97 17 135/78 (97) 94 I/O 06/28/17 06/28/17 06/28/17 06/29/17 06/29/17 06/29/17 07:00 15:00 23:00 07:00 15:00 23:00 Intake Total 340 ml 564 ml 580 ml 340 ml Balance 340 ml 564 ml 580 ml 340 ml Intake Oral 240 ml 480 ml 240 ml IV Total 100 ml 564 ml 100 ml 100 ml # Voids 3 3 3 # Bowel Movements 0 Result Diagram: 06/28/17 0722 06/28/17 0722 Imaging Last Impressions Chest X-Ray 06/27/17 1801 Signed Impressions: Service Date/Time: Tuesday, June 27, 2017 18:15 - CONCLUSION: Trace bibasilar atelectasis and mild compensated cardiomegaly. Richie Hernandez MD Head CT 06/27/17 0000 Signed Impressions: Service Date/Time: Tuesday, June 27, 2017 18:32 - CONCLUSION: No acute intracranial abnormality. Mild, chronic white matter changes. Richie Hernandez MD Objective Remarks GENERAL: This is a well-nourished, well-developed patient, in no apparent distress. Awake and alert. Sitting up in bedside recliner. is at the bedside. SKIN: No rashes. Cool and dry. HEAD: Atraumatic. Normocephalic. EYES: Extraocular motions intact. No scleral icterus. No injection or drainage. ENT: Nose without bleeding, purulent drainage. Airway patent. MMM. NECK: Trachea midline. CARDIOVASCULAR: Regular rate and rhythm without murmurs, gallops, or rubs. RESPIRATORY: Clear to auscultation. Breath sounds equal bilaterally. No wheezes , rales, or rhonchi. GASTROINTESTINAL: Abdomen soft, non-tender, nondistended. No hepato-splenomegaly , or palpable masses. No guarding. MUSCULOSKELETAL: Extremities without clubbing, cyanosis, or edema. No joint tenderness, effusion, or edema noted. No calf tenderness. NEUROLOGICAL: Awake and alert. Able to move all extremities. Normal speech. PSYCHIATRIC: Appropriate mood, affect and normal judgement/insight. Medications and IVs Current Medications Medications (Trade) Dose Ordered Sig/Nany Route Start Time Stop Time Status Last Admin (NS Flush) 2 ml UNSCH PRN IV FLUSH 06/27/17 21:00 (NS Flush) 2 ml BID IV FLUSH 06/27/17 21:00 06/28/17 21:02 (Narcan Inj) 0.4 mg UNSCH PRN IV PUSH 06/27/17 21:00 Pharmacy Profile Note 0 ml @ 0 mls/hr UNSCH OTHER 06/27/17 21:00 Piperacillin Sod/ Tazobactam Sod 100 ml @ 200 mls/hr Q6H IV 06/28/17 03:00 06/29/17 09:50 Vancomycin HCl 1400 mg/Sodium Chloride 514 ml @ 250 mls/hr Q12H IV 06/28/17 06:00 06/29/17 05:54 (Eliquis) 5 mg BID PO 06/28/17 09:00 06/29/17 09:50 (Lipitor) 40 mg HS PO 06/28/17 21:00 06/28/17 21:02 (Cozaar) 25 mg DAILY PO 06/28/17 09:00 06/29/17 09:50 (Protonix) 40 mg DAILY PO 06/28/17 09:00 06/29/17 09:50 (Sodium Bicarbonate) 325 mg DAILY PO 06/28/17 09:00 06/29/17 09:50 Patient Own Medication PT OWN MED: POTASS... DAILY PO 06/28/17 09:00 Patient Own Medication PT OWN MED: RAPAFL... DAILY PO 06/28/17 09:00 (D50w (Vial) Inj) 50 ml UNSCH PRN IV 06/28/17 16:00 (Glucagon Inj) 1 mg UNSCH PRN OTHER 06/28/17 16:00 (NovoLOG SUPPLEMENTAL SCALE) 1 ACHS SLIDING SCALE SQ 06/28/17 17:00 06/29/17 13:08 A/P Assessment and Plan 81yo male with PMHX of DM, HTN and atrial fibrillation admitted with AMS, UTI/ SIRS. Encephalopathy, resolved SIRS - likely due to UTI/SIRS - BCX growing Staph epi. Possible contaminant. Repeat BCX. Consult ID. - patient at cognitive baseline - monitor UTI, failed outpatient therapy - patient treated with clindamycin and Bactrim as outpatient - white count improved 12.8 --> 10.3 - continue on IV abx - UCX growing group D enterococcus. F/U on sensitivities. 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 Continue to hold home NPH and Victoza. - accuchecks - ISS - diabetic diet Hypomagnesemia - improved s/p repletion - mag 400mg daily Discussed with patient, , nursing staff and Dr. Bundy Attending Statement The exam, history, and the medical decision-making described in the above note were completed with the assistance of the mid-level provider. I reviewed and agree with the findings presented. I attest that I had a vzgh-rx-qcvw encounter with the patient on the same day, and personally performed and documented my assessment and findings in the medical record. Pt feels much better and would like to go home soon. Pt's present and states that pt was treated for UTI w clinda and bactrim on two separte occasion. Pt denies any CP/SOB/N/v on exam: pleasant, sitting on recliner, HR rrr and lungs are clear, abdomen soft NT, moves all extremities SIRS/UTI/failed outpatient therapy: continue IV vanc and zosyn for now. Urine cx growing Group D enterococcus and blood cx staph epi. suspect staph epi might be a contaminant however will repeat blood cx and get ID input. Patricia Syed Jun 29, 2017 15:06 Sophia Bundy MD Jun 29, 2017 18:25
[2017-06-29 16:00] VITALS: BP 123/71; PULSE 89; RESP 16; TEMP 97.9; O2SAT 95
--- NOTE | 2017-06-29 16:34 | OTSOAPIP ---
TIME SESSION COMPLETED: 1600 TREATMENT TIME: 0 MINS. CHART REVIEWED. S: PAIN: 0 /10 O: PATIENT IS SITTING UP IN BEDSIDE CHAIR WITH IN THE ROOM. PATIENT'S REPORTS THAT HE DOES NOT NEED THERAPY THAT HE HAS MADE A FULL RECOVERY. A: PATIENT RESPONSE TO TREATMENT:PER PHYSICAL THERAPY NOTE HE IS INDEPENDENT P: AND PATIENT ARE PLEASANT BUT READY TO GO HOME. EXPLAINED THAT OUR MAIN CONCERN IS THAT PATIENT IS SAFE FOR DISCHARGE AND DOES NOT HAVE TO RETURN DUE TO A FALL. PATIENT AND REPORT THEY ARE FINE. WILL DISCHARGE OT EVALUATION ORDER. _X_ PT WAS INSTRUCTED TO NOT GET OUT OF BED OR CHAIR WITHOUT ASSISTANCE. CALL MULLER WAS LEFT WITHIN REACH. DISABILITIES ELEMENTS SCORE - SELF-FEEDING ___X_ 4 = INDEPENDENT: EATS FROM A DISH AND DRINKS FROM A CUP OR GLASS PRESENTED IN THE CUSTOMARY MANNER ON TABLE OR TRAY. USES ORDINARY KNIFE, FORK, AND SPOON. ____ 3 = INDEPENDENT WITH DEVICE: USES AN ADAPTIVE OR ASSISTING DEVICE SUCH A STRAW, SPORK, OR ROCKING KNIFE OR REQUIRES MORE THAN A REASONABLE TIME TO EAT. ____ 2 = DEPENDENT - PARTIAL HELP REQUIRED: PERFORMS HALF OR MORE OF FEEDING TASKS BUT REQUIRES SUPERVISION (E.G., STANDBY, CUEING, OR COAXING), SETUP (APPLICATION OF ORTHOTICS), OR OTHER HELP. ____ 1 = DEPENDENT - TOTAL HELP REQUIRED: EITHER PERFORMS LESS THAN HALF OF FEEDING TASKS, OR DOES NOT EAT OR DRINK FULL MEALS BY MOUTH AND RELIES AT LEAST IN PART ON OTHER MEANS OF ALIMENTATION, SUCH PARENTERAL OR GASTROSTOMY FEEDINGS. INTERDISCIPLINARY COMMUNICATION:ELECTRONIC MEDICAL RECORD DISCHARGE RECOMMENDATION/ATTENTION CASE MANAGEMENT: NONE EQUIPMENT: ___ 3-1 BEDSIDE COMMODE ___ DROP ARM COMMODE ___ SLIDING BOARD ___ SHOWER BENCH ___ NONE ___ OTHER: CONTINUED THERAPY: ___ OT AT REHAB _X__ HOME WITH NO OT RECOMMENDED ___ HOME WITH HOME HEALTH OT ___ HOME WITH OUT PATIENT OT ___ REQUIRES SUPERVISION AT HOME FOR SAFETY ___ OTHER: Therapist: Kay Joya OTR/L Signature on file
--- NOTE | 2017-06-29 18:02 | PD.CONS ---
History of Present Illness Service Infectious disease Consult Requested By Dr Poncho Brooke Reason for Consult Evaluate patient with positive blood culture, UTI Primary Care Physician Willis Márquez DO Diagnoses: History of Present Illness Patient seen and examined. Records reviewed. Patient is a 81-year-old male, admitted to the hospital for evaluation of generalized weakness. Patient apparently has not been steady when he is ambulating. He's also been sleeping a lot. He did not have any fever or chills or sweats. Denies any respiratory complaint. Has not had any abdominal pain nausea or vomiting. No diarrhea. He denies any dysuria, but feels that he is getting a little bit more 6-year-old recently, decrease stream of urine, and felt like he may not be emptying his bladder completely. He has never been told that he had an enlarged prostate. Patient also has had some soreness in the buttock area, but he denies any problem when he has a bowel movement. He has known psoriasis, and he was put on some topical treatment for the possibility that it is psoriasis, but it has not improved. His initial WBC was 12, and it's down to normal. He has not been febrile. His urinalysis did show pyuria. 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 1 out of 2 blood cultures has staph epidermidis. CT of the head is unremarkable. Chest x-ray has some basilar atelectasis. He is on vancomycin and Zosyn. Patient currently feels back to baseline. He is been steady on his feet. He feels stronger. Infectious disease consultation has been requested to evaluate the patient with positive blood culture, and UTI. Review of Systems Constitutional: COMPLAINS OF: Fatigue, DENIES: Fever, Chills, Dizziness, Night Sweats Eyes: DENIES: Eye pain Ears, nose, mouth, throat: DENIES: Nasal discharge, Oral lesions, Throat pain, Ear Pain, Sinus Pain Respiratory: DENIES: Cough, Shortness of breath Cardiovascular: DENIES: Chest pain, Palpitations, Syncope Gastrointestinal: DENIES: Abdominal pain, Diarrhea, Nausea, Vomiting Genitourinary: COMPLAINS OF: Nocturia, DENIES: Urgency, Dysuria Musculoskeletal: DENIES: Back pain Integumentary: COMPLAINS OF: Pruritus, Rash Neurologic: DENIES: Headache, Localized weakness Psychiatric: DENIES: Hallucinations Past Family Social History Allergies: Coded Allergies: No Known Allergies (Unverified , 06/27/17) Past Medical History Diabetes CVA Hypertension Atrial fibrillation Asthma Kidney stones Skin cancer GERD Past Surgical History Bilateral cea Appendectomy Tonsilectomy Active Ordered Medications Eliquis Lipitor Amaryl Insulin Cozaar Magnesium Glucophage Protonix Potassium Zosyn Vancomycin Family History Noncontributory Social History Used to smoke, quit about 30yrs ago Drink about 3-4 ounces a week of scotch a day No drugs Lives with Physical Exam Vital Signs Vital Signs Date Time Temp Pulse Resp B/P (MAP) Pulse Ox O2 Delivery O2 Flow Rate FiO2 06/29/17 16:00 97.9 89 16 123/71 (88) 95 06/29/17 12:00 88 06/29/17 12:00 97.3 70 18 129/72 (91) 93 06/29/17 08:00 96.6 74 16 133/70 (91) 94 06/29/17 04:00 96.5 93 17 101/80 (87) 95 06/29/17 00:00 97.0 86 17 127/74 (91) 95 06/28/17 20:13 90 06/28/17 20:00 97.8 97 17 135/78 (97) 94 Physical Exam GENERAL: Patient is a well-nourished, well-developed patient, awake and alert , not in respiratory distress. SKIN: Warm and dry. Has some ecchymoses in UE, and has psoariasis rash in his UE. No evidence of embolic lesions. HEAD: Normocephalic. No temporal wasting, or tenderness. EYES: Bantam conjunctiva. No petechia or hemorrhage. Pupils equal, round and reactive to light. Extraocular movements full and intact. No scleral icterus. No injection or drainage. Has some ecchymoses in R lower lid EARS, NOSE AND THROAT: Nose without bleeding or purulent nasal discharge. No sinus tenderness. Mucous membranes pink and moist. No oral lesions noted. No exudate. No oral thrush. NECK: Trachea midline. Supple and not tender, no meningeal signs. Scars in neck C/W surgery CARDIOVASCULAR: Regular rate and rhythm. Has systolic murmur in the apex. RESPIRATORY: Clear to auscultation. Breath sounds equal bilaterally. No rales , wheezing or rhonchi ABDOMEN: Soft, non-tender, nondistended. Bowel sounds present and normoactive. Has a large midline ventral hernia, reducible. No guarding. No rebound. No organomegaly. EXTREMITIES: No clubbing, cyanosis, or edema.No joint effusion, has good ROM. No calf tenderness. Well perfused and warm. NEUROLOGICAL: Awake and alert. Cranial nerves grossly intact. Motor grossly within normal limits. PSYCHIATRIC: Normal affect, calm and cooperative. LINE: No evidence of infection BACK: Has an erythematous macules in both buttocks about 2 inch diameter size Laboratory Laboratory Tests Test 06/29/17 05:45 Vancomycin Level Trough 13.2 Date/Time Source Procedure Growth Status 06/27/17 18:15 Blood Peripheral Aerobic Blood Culture - Preliminary Staphylococcus Epidermidis Resulted 06/27/17 18:15 Blood Peripheral Anaerobic Blood Culture - Preliminary NO GROWTH IN 2 DAYS Resulted 06/27/17 18:15 Nasal Aspirate Influenza Types A,B Antigen (FOREIGN) - Final NEGATIVE FOR FLU A AND B ANTIGEN.... Complete 06/27/17 18:00 Urine Catheterized Urine Urine Culture - Preliminary Group D Enterococcus Resulted Result Diagram: 06/28/17 0722 06/28/17 0722 Imaging RADIOLOGY STUDIES/FILMS REVIEWED Last Impressions Chest X-Ray 06/27/17 1801 Signed Impressions: Service Date/Time: Tuesday, June 27, 2017 18:15 - CONCLUSION: Trace bibasilar atelectasis and mild compensated cardiomegaly. Richie Hernandez MD Head CT 06/27/17 0000 Signed Impressions: Service Date/Time: Tuesday, June 27, 2017 18:32 - CONCLUSION: No acute intracranial abnormality. Mild, chronic white matter changes. Richie Hernandez MD Assessment and Plan Assessment and Plan IMPRESSION One (+) BC with Staph epi C/W contaminant UA with low colony count Enterococcus - has had some mild symptoms - ?if this is etiology of his generalized weakness RECOMMENDATION Bladder scan renal US Amoxicillin 500 TID x 7 days D/C other Abx Repeat UA If US ok, and he remains stable, he can be D/C this weekend and complete Rx at home Thank you for this consultation Discussed Condition With Explained recommendation to the patient Ryanne Thurman MD Jun 29, 2017 18:02
[2017-06-29] MEDS: metFORMIN HCL 500 MG TAB PO SCH (18:13)
[2017-06-29] MEDS: GLIMEPIRIDE 2 MG TAB PO SCH (18:14)
[2017-06-29] MEDS: MAGNESIUM OXIDE 400 MG TAB PO SCH (18:15)
[2017-06-29 20:00] VITALS: BP 139/86; PULSE 91; RESP 18; TEMP 97.7; O2SAT 97
[2017-06-29] MEDS: SODIUM CHLORIDE 0.9% FLUSH 10 ML FLUSH IV FLUSH SCH ×2 (21:00→21:01)
[2017-06-29] MEDS: AMOXICILLIN (TRIHYDRATE) 500 MG CAP PO SCH (21:01)
[2017-06-29] MEDS: ATORVASTATIN 40 MG TAB PO SCH (21:01)
[2017-06-29 22:14] LABS: BLOOD, URINE SMALL (NEG); GLUCOSE,URINE 300 mg/dL (NEG); KETONE, URINE NEG (NEG); NITRITE,URINE NEG (NEG); URINE COLOR LIGHT-YELLOW (YELLW/STRAW)
--- NOTE | 2017-06-29 22:54 | RADRPT ---
EXAM DATE/TIME: 06/29/2017 21:49 [facility] COMPARISON: No previous studies available for comparison. INDICATIONS : Evaluate for hydronephrosis. MEDICAL HISTORY : Hypercholesterolemia. Gastroesophageal reflux disease. Cerebrovascular accident. Head trauma. Atr ial fibrillation. Hypertension. Kidney stones. Carcinoma, skin. Diabetes. SURGICAL HISTORY : Tonsillectomy. Bilateral carotid endarctectomy. ENCOUNTER: Initial ACUITY: 1 day PAIN SCORE: 4/10 LOCATION: Bilateral flank MEASUREMENTS: RIGHT KIDNEY: 12.9 x 4.7 x 6.3 cm LEFT KIDNEY: 11.6 x 5.8 x 6.1 cm FINDINGS: RIGHT KIDNEY: Parenchymal echogenicity within normal limits. 22 x 17 x 13 mm upper pole stone suspected. No hydrone phrosis. LEFT KIDNEY: Parenchymal echogenicity within normal limits. 12 mm mid zone stone suspected. No hydronephrosis. BLADDER: Ultrasound appearance of the urinary bladder is within normal limits. CONCLUSION: Bilateral renal stones with out evidence of acute obstructive uropathy. Richie Hernandez MD on June 29, 2017 at 22:51 Board Certified Radiologist. This report was verified electronically.
[2017-06-30] VITALS: BP 124/61; PULSE 87; RESP 18; TEMP 96.8; O2SAT 97
[2017-06-30 04:00] VITALS: BP 123/69; PULSE 90
[2017-06-30 06:22] LABS: BICARBONATE 25.6 MEQ/L (21.0-32.0); POTASSIUM 3.7 MEQ/L (3.5-5.1)
[2017-06-30] MEDS: GLIMEPIRIDE 2 MG TAB PO SCH ×2 (06:52→17:47)
[2017-06-30 08:00] VITALS: BP 122/85; PULSE 99; RESP 19; TEMP 96; O2SAT 95
[2017-06-30] MEDS: INSULIN ASPART SUPPLEMENTAL SCALE SQ SCH ×4 (08:00→21:00)
[2017-06-30] MEDS: RAPAFLO 8 MG PO SCH (09:00)
[2017-06-30] MEDS: POTASSIUM CITRATE PO SCH (09:00)
[2017-06-30] MEDS: MAGNESIUM OXIDE 400 MG TAB PO SCH (09:28)
[2017-06-30] MEDS: LOSARTAN 25 MG TAB PO SCH (09:28)
[2017-06-30] MEDS: PANTOPRAZOLE SOD 40 MG DELAYED RELEASE TAB PO SCH (09:28)
[2017-06-30] MEDS: SODIUM BICARBONATE 325 MG TAB PO SCH (09:29)
[2017-06-30] MEDS: APIXABAN 5 MG TABLET PO SCH ×2 (09:29→22:39)
[2017-06-30] MEDS: metFORMIN HCL 500 MG TAB PO SCH ×2 (09:29→17:47)
[2017-06-30] MEDS: SODIUM CHLORIDE 0.9% FLUSH 10 ML FLUSH IV FLUSH SCH ×2 (09:34→21:00)
[2017-06-30] MEDS: AMOXICILLIN (TRIHYDRATE) 500 MG CAP PO SCH ×3 (11:11→17:47)
[2017-06-30 12:00] VITALS: BP 130/69; PULSE 83; RESP 17; TEMP 98.3; O2SAT 95
--- NOTE | 2017-06-30 13:52 | HHI.PR ---
Subjective Remarks Pt feels well, hopeful to go home soon. Denies any CP/SOB/N/V at bedside Objective Vitals Vital Signs Date Time Temp Pulse Resp B/P (MAP) Pulse Ox O2 Delivery O2 Flow Rate FiO2 06/30/17 12:00 98.3 83 17 130/69 (89) 95 06/30/17 08:00 96.0 99 19 122/85 (97) 95 06/30/17 04:00 90 123/69 (87) 06/30/17 00:00 96.8 87 18 124/61 (82) 97 06/29/17 20:00 97.7 91 18 139/86 (103) 97 06/29/17 16:00 97.9 89 16 123/71 (88) 95 I/O 06/29/17 06/29/17 06/29/17 06/30/17 06/30/17 06/30/17 07:00 15:00 23:00 07:00 15:00 23:00 Intake Total 340 ml 1300 ml 890 ml Balance 340 ml 1300 ml 890 ml Intake Oral 240 ml 700 ml 240 ml IV Total 100 ml 600 ml 650 ml Bladder Scan Volume Amount 5 ml # Voids 3 4 6 # Bowel Movements 0 Result Diagram: 06/28/17 0722 06/30/17 0510 Imaging Last Impressions Renal Ultrasound 06/29/17 0000 Signed Impressions: Service Date/Time: Thursday, June 29, 2017 21:49 - CONCLUSION: Bilateral renal stones with out evidence of acute obstructive uropathy. Richie Hernandez MD Chest X-Ray 06/27/17 1801 Signed Impressions: Service Date/Time: Tuesday, June 27, 2017 18:15 - CONCLUSION: Trace bibasilar atelectasis and mild compensated cardiomegaly. Richie Hernandez MD Head CT 06/27/17 0000 Signed Impressions: Service Date/Time: Tuesday, June 27, 2017 18:32 - CONCLUSION: No acute intracranial abnormality. Mild, chronic white matter changes. Richie Hernandez MD Objective Remarks GENERAL: This is a well-nourished, well-developed patient. Awake and alert. Sitting up in bedside recliner. is at the bedside. EYES: Extraocular motions intact. ENT: Nose without drainage. Airway patent. NECK: Trachea midline. CARDIOVASCULAR: Regular rate and rhythm without murmurs RESPIRATORY: Clear to auscultation. Breath sounds equal bilaterally. No wheezes GASTROINTESTINAL: Abdomen soft, non-tender, nondistended. MUSCULOSKELETAL: Extremities without edema. NEUROLOGICAL: Awake and alert. Able to move all extremities. Normal speech. PSYCHIATRIC: Appropriate mood, affect and normal judgement/insight. A/P Assessment and Plan 81yo male with PMHX of DM, HTN and atrial fibrillation admitted with AMS, UTI/ SIRS. Encephalopathy, resolved SIRS - likely due to UTI/SIRS - BCX growing Staph epi and gram pos cocci. Repeat BCX pending. ID following UTI, failed outpatient therapy - patient treated with clindamycin and Bactrim as outpatient - white count improved 12.8 --> 10.3 - Abx switched to amox per ID. UCX growing group D enterococcus. Repeat u/a neg. 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 - accuchecks, ISS - diabetic diet Hypomagnesemia - improved s/p repletion - s/p mag 400mg daily Discharge Planning I have sent a message to Dr. Guerra, covering ID and will wait for final recs. Pt's initial Blood cx now growing gram (+) cocci in the anaerobic cx in addition to the staph epi. Repeat blood cx pending. Sophia Bundy MD Jun 30, 2017 13:52
[2017-06-30 16:00] VITALS: BP 137/70; PULSE 100; RESP 18; TEMP 96.9; O2SAT 96
[2017-06-30 20:00] VITALS: BP 129/78; PULSE 97; RESP 22; TEMP 97; O2SAT 98
[2017-06-30] MEDS: ATORVASTATIN 40 MG TAB PO SCH (22:40)
[2017-07-01] VITALS: BP 114/60; PULSE 89; RESP 22; TEMP 96.9; O2SAT 95
[2017-07-01 04:00] VITALS: BP 119/64; PULSE 80; RESP 22; TEMP 96.7; O2SAT 95
[2017-07-01 08:00] VITALS: BP 136/63; PULSE 65; RESP 16; TEMP 97; O2SAT 97
[2017-07-01] MEDS: INSULIN ASPART SUPPLEMENTAL SCALE SQ SCH ×2 (08:21→12:00)
[2017-07-01] MEDS: SODIUM BICARBONATE 325 MG TAB PO SCH (08:21)
[2017-07-01] MEDS: GLIMEPIRIDE 2 MG TAB PO SCH (08:21)
[2017-07-01] MEDS: PANTOPRAZOLE SOD 40 MG DELAYED RELEASE TAB PO SCH (08:21)
[2017-07-01] MEDS: metFORMIN HCL 500 MG TAB PO SCH (08:22)
[2017-07-01] MEDS: APIXABAN 5 MG TABLET PO SCH (08:22)
[2017-07-01] MEDS: LOSARTAN 25 MG TAB PO SCH (08:22)
[2017-07-01] MEDS: AMOXICILLIN (TRIHYDRATE) 500 MG CAP PO SCH ×2 (08:22→12:44)
[2017-07-01] MEDS: SODIUM CHLORIDE 0.9% FLUSH 10 ML FLUSH IV FLUSH SCH (08:22)
[2017-07-01] MEDS: RAPAFLO 8 MG PO SCH (08:22)
[2017-07-01] MEDS: POTASSIUM CITRATE PO SCH (08:22)
[2017-07-01] MEDS ORDERED: INSULIN HUMAN NPH 1,000 UNITS/10 ML VIAL SQ SCH (09:00)
[2017-07-01 12:00] VITALS: BP 132/73; PULSE 88; RESP 18; TEMP 97.1; O2SAT 98
--- NOTE | 2017-07-01 12:52 | HHI.PR ---
Subjective Remarks WANTS TO GO HOME CLEARED BY ID DC TO HOME TODAY DW RN AND PT CONSIDERING GOING AMA IF NOT CLEARED FOR DC TO HOME Objective Vitals Vital Signs Date Time Temp Pulse Resp B/P (MAP) Pulse Ox O2 Delivery O2 Flow Rate FiO2 07/01/17 12:00 97.1 88 18 132/73 (92) 98 07/01/17 08:00 97.0 65 16 136/63 (87) 97 07/01/17 04:00 96.7 80 22 119/64 (82) 95 07/01/17 00:00 96.9 89 22 114/60 (78) 95 06/30/17 20:00 97.0 97 22 129/78 (95) 98 06/30/17 16:00 96.9 100 18 137/70 (92) 96 I/O 06/30/17 06/30/17 06/30/17 07/01/17 07/01/17 07/01/17 07:00 15:00 23:00 07:00 15:00 23:00 Intake Total 890 ml 750 ml 480 ml Balance 890 ml 750 ml 480 ml Intake Oral 240 ml 750 ml 480 ml IV Total 650 ml # Voids 6 6 3 # Bowel Movements 1 1 Result Diagram: 06/28/17 0722 06/30/17 0510 Other Results Laboratory Tests Test 06/29/17 05:45 06/29/17 21:00 06/30/17 05:10 Vancomycin Level Trough 13.2 MCG/ML Urine Color LIGHT-YELLOW Urine Turbidity CLEAR Urine pH 5.0 Urine Specific [place] 1.010 Urine Protein NEG mg/dL Urine Glucose (UA) 300 mg/dL Urine Ketones NEG mg/dL Urine Occult Blood SMALL Urine Nitrite NEG Urine Bilirubin NEG Urine Urobilinogen LESS THAN 2.0 MG/DL Urine Leukocyte Esterase NEG Urine RBC 9 /hpf Urine WBC 1 /hpf Blood Urea Nitrogen 10 MG/DL Creatinine 0.61 MG/DL Random Glucose 105 MG/DL Calcium Level 8.7 MG/DL Sodium Level 139 MEQ/L Potassium Level 3.7 MEQ/L Chloride Level 104 MEQ/L Carbon Dioxide Level 25.6 MEQ/L Anion Gap 9 MEQ/L Estimat Glomerular Filtration Rate 128 ML/MIN Imaging Last Impressions Renal Ultrasound 06/29/17 0000 Signed Impressions: Service Date/Time: Thursday, June 29, 2017 21:49 - CONCLUSION: Bilateral renal stones with out evidence of acute obstructive uropathy. Richie Hernandez MD Chest X-Ray 06/27/17 1801 Signed Impressions: Service Date/Time: Tuesday, June 27, 2017 18:15 - CONCLUSION: Trace bibasilar atelectasis and mild compensated cardiomegaly. Richie Hernandez MD Head CT 06/27/17 0000 Signed Impressions: Service Date/Time: Tuesday, June 27, 2017 18:32 - CONCLUSION: No acute intracranial abnormality. Mild, chronic white matter changes. iRchie Hernandez MD Objective Remarks GENERAL: SKIN: Warm and dry. HEAD: Atraumatic. Normocephalic. EYES: Pupils equal and round. No scleral icterus. No injection or drainage. ENT: No nasal bleeding or discharge. Mucous membranes pink and moist. NECK: Trachea midline. No JVD. CARDIOVASCULAR: Regular rate and rhythm. S1, S2 NO S3 OR S4 RESPIRATORY: No accessory muscle use. Clear to auscultation. Breath sounds equal bilaterally. GASTROINTESTINAL: Abdomen soft, non-tender, nondistended. Hepatic and splenic margins not palpable. MUSCULOSKELETAL: Extremities without clubbing, cyanosis, or edema. No obvious deformities. NEUROLOGICAL: Awake and alert. No obvious cranial nerve deficits. Motor grossly within normal limits. Five out of 5 muscle strength in the arms and legs. Normal speech. PSYCHIATRIC: Appropriate mood and affect; insight and judgment normal. Medications and IVs Current Medications Sodium Chloride 1,000 ml @ 1,000 mls/hr Q1H ONCE IV Last administered on 18:01; Start 06/27/17 at 18:01; Stop 06/27/17 at 19:00; Status DC Piperacillin Sod/ Tazobactam Sod 100 ml @ 200 mls/hr ONCE STAT IV Last administered on 06/27/17 20:56; Start 06/27/17 at 18:56; Stop 06/27/17 at 19:25 ; Status DC Vancomycin HCl 1000 mg/Sodium Chloride 250 ml @ 250 mls/hr ONCE STAT IV Last administered on 06/27/17 20:55; Start 06/27/17 at 18:56; Stop 06/27/17 at 19:55 ; Status DC Magnesium Sulfate/ Dextrose 100 ml @ 100 mls/hr ONCE ONCE IV Last administered on 06/27/17 21:07; Start 06/27/17 at 19:30; Stop 06/27/17 at 20:29 ; Status DC Sodium Chloride (NS Flush) 2 ml UNSCH PRN IV FLUSH FLUSH AFTER USING IV ACCESS ; Start 06/27/17 at 21:00 Sodium Chloride (NS Flush) 2 ml BID IV FLUSH Last administered on 07/01/17 08: 22; Start 06/27/17 at 21:00 Naloxone HCl (Narcan Inj) 0.4 mg UNSCH PRN IV PUSH SEE LABEL COMMENTS; Start at 21:00 Pharmacy Profile Note 0 ml @ 0 mls/hr UNSCH OTHER ; Start 06/27/17 at 21:00; Stop 06/29/17 at 18:19; Status DC Piperacillin Sod/ Tazobactam Sod 100 ml @ 200 mls/hr Q6H IV Last administered on 06/29/17 14:59; Start 06/28/17 at 03:00; Stop 06/29/17 at 18:19; Status DC Vancomycin HCl 1400 mg/Sodium Chloride 514 ml @ 250 mls/hr Q12H IV Last administered on 06/29/17 18:13; Start 06/28/17 at 06:00; Stop 06/29/17 at 18:19 ; Status DC Miscellaneous Information SPECIFIC LAB TO BE ... ONCE ONCE .XX Last administered on 06/29/17 05:45; Start 06/29/17 at 05:45; Stop 06/29/17 at 05:46 ; Status DC Apixaban (Eliquis) 5 mg BID PO Last administered on 07/01/17 08:22; Start at 09:00 Atorvastatin Calcium (Lipitor) 40 mg HS PO Last administered on 06/30/17 22:40 ; Start 06/28/17 at 21:00 Losartan Potassium (Cozaar) 25 mg DAILY PO Last administered on 07/01/17 08:22 ; Start 06/28/17 at 09:00 Pantoprazole Sodium (Protonix) 40 mg DAILY PO Last administered on 07/01/17 08 :21; Start 06/28/17 at 09:00 Sodium Bicarbonate (Sodium Bicarbonate) 325 mg DAILY PO Last administered on 08:21; Start 06/28/17 at 09:00 Patient Own Medication PT OWN MED: VICT... ONCE SQ ; Start 06/28/17 at 02:45; Stop 06/28/17 at 11:00; Status DC Patient Own Medication PT OWN MED: POTASS... DAILY PO Last administered on 06/29 09:00; Start 06/28/17 at 09:00 Patient Own Medication PT OWN MED: RAPAFL... DAILY PO Last administered on 06/29 09:00; Start 06/28/17 at 09:00 Dextrose (D50w (Vial) Inj) 50 ml UNSCH PRN IV HYPOGLYCEMIA-SEE COMMENTS; Start 06/28/17 at 16:00 Glucagon (Glucagon Inj) 1 mg UNSCH PRN OTHER HYPOGLYCEMIA-SEE COMMENTS; Start 06/28/17 at 16:00 Insulin Aspart (NovoLOG SUPPLEMENTAL SCALE) 1 ACHS SLIDING SCALE SQ Last administered on 07/01/17 08:21; Start 06/28/17 at 17:00 Metformin HCl (Glucophage) 1,000 mg BIDPC PO Last administered on 07/01/17 08: 22; Start 06/29/17 at 18:00 Glimepiride (Amaryl) 2 mg BIDAC PO Last administered on 07/01/17 08:21; Start 06/29/17 at 16:00 Magnesium Oxide (Mag-Ox) 400 mg DAILY@1100 PO Last administered on 06/30/17 09 :28; Start 06/29/17 at 15:15; Stop 06/30/17 at 13:49; Status DC Amoxicillin (Trimox) 500 mg TID PO Last administered on 07/01/17 12:44; Start 06/29/17 at 19:00; Stop 07/06/17 at 18:59 Insulin Human NPH (NovoLIN N INJ) 10 units DAILY SQ Last administered on 08:21; Start 07/01/17 at 09:00 Urinary Catheter: No Vascular Central Line Catheter: No A/P Assessment and Plan 81yo male with PMHX of DM, HTN and atrial fibrillation admitted with AMS, UTI/ SIRS. Encephalopathy, resolved SIRS - likely due to UTI/SIRS - BCX growing Staph epi and gram pos cocci. Repeat BCX pending. ID following UTI, failed outpatient therapy - patient treated with clindamycin and Bactrim as outpatient - white count improved 12.8 --> 10.3 - Abx switched to amox per ID. UCX growing group D enterococcus. Repeat u/a neg. 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 - accucheckemily, ISS - diabetic diet Hypomagnesemia - improved s/p repletion - s/p mag 400mg daily Discharge Planning MAY LEAVE AMA TODAY- AWAIT CULTURES Ramos Mnotero DO Jul 01, 2017 12:52
[2017-07-01] MEDS ORDERED: AMOX500C PO (12:54)
--- NOTE | 2017-07-01 12:55 | HHI.FF ---
Face to Face Verification Diagnosis: (1) Recurrent stenosis of right carotid artery (2) Weakness generalized (3) SIRS (systemic inflammatory response syndrome) (4) UTI (urinary tract infection) Physical Therapy Order: Evaluate and Treat, Improve ambulation, Strength and gait training Occupational Therapy Order: Evaluate and Treat, Gross motor coordination, Fine motor coordination Home Health Nursing Order: Medical education Home Health Aide Order: To Assist In: Bathing and personal care, broker agricultural produce and meal prep I have seen patient Wenceslao Yee on 07/01/17. My clinical findings support the need for the requested home health care services because: Deconditioned w/ increased weakness I certify that my clinical findings support that this patient is homebound because: Impaired cognitive ability/safety Ramos Montero DO Jul 01, 2017 12:55
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
== END 2017-07-01 15:07 | disposition home health service (06) | DRG 689 ==
LOC: NEPE 17:24 → NEDA 19:58 → N07B 06-28 00:30
PROVIDERS: ADMIT Hospitalist; ATTEND Hospitalist
DX: N39.0 Urinary tract infection, site not specified (principal); G93.40 Encephalopathy, unspecified; E11.649 Type 2 diabetes mellitus with hypoglycemia without coma; E87.1 Hypo-osmolality and hyponatremia; I48.91 Unspecified atrial fibrillation; J98.11 Atelectasis; E83.42 Hypomagnesemia; I10 Essential (primary) hypertension; L40.9 Psoriasis, unspecified; I65.21 Occlusion and stenosis of right carotid artery; J45.909 Unspecified asthma, uncomplicated; K21.9 Gastro-esophageal reflux disease without esophagitis; B95.2 Enterococcus as the cause of diseases classified elsewhere; Z79.4 Long term (current) use of insulin; Z85.828 Personal history of other malignant neoplasm of skin; Z87.442 Personal history of urinary calculi; Z86.73 Personal history of transient ischemic attack (TIA), and cerebral infarction without residual deficits; Z87.891 Personal history of nicotine dependence
CPT/HCPCS: 70450; 71010; 76775; 80048; 80053; 80202; 81001; 82948; 83605; 83735; 85025; 86403; 87040; 87077; 87086; 87186; 87205; 87804; 93005; 96360; J1815; J2543; J3370; J3475; J7030; J7040; J7050